=== PATIENT | female | born 2000 | race Caucasian/White ===

== ENCOUNTER 2023-09-04 14:09 | Emergency (ER) | payer MEDICAID ==
[~2023-09-04] VITALS: Ht 160 cm; Wt 74.8 kg
[2023-09-04 14:10] VITALS: BP_SYST 108; PULSE 72; RESP 17; TEMP 97.8; O2SAT 98
[2023-09-04] MEDS ORDERED: KETOROLAC TROMETHAMINE 30 MG VIAL IM ONE (15:45)
[2023-09-04] MEDS ORDERED: DICL20GE TP (16:34)
[2023-09-04] MEDS ORDERED: IBUP-1971 PO (16:34)
[2023-09-04 16:45] VITALS: BP_SYST 108; PULSE 72; RESP 17; TEMP 97.8; O2SAT 98
== END 2023-09-04 16:44 | disposition home or self-care (01) ==
LOC: SED 14:09
DX: S16.1XXA Strain of muscle, fascia and tendon at neck level, initial encounter (principal); Z79.899 Other long term (current) drug therapy; X50.0XXA Overexertion from strenuous movement or load, initial encounter; Y93.89 Activity, other specified; Y92.89 Other specified places as the place of occurrence of the external cause; Y99.8 Other external cause status
CPT/HCPCS: 99283; 72040; 96372; J1885